=== PATIENT | female | born 1955 | race African-American/Black ===

== ENCOUNTER 2023-07-18 15:34 | Inpatient (IN) | payer OTHER ==
[~2023-07-18] VITALS: Ht 162.6 cm; Wt 46.7 kg
[2023-07-18 16:29] LABS: BASOPHILS % (AUTO) 0.2 % (0.0-2.0); EOSINOPHILS # (AUTO) 0.1 K/uL (0.0-0.7); HEMATOCRIT 32.6 % (31.2-41.9); LYMPHOCYTES # (AUTO) 1.1 K/uL (0.8-4.8); LYMPHOCYTES % (AUTO) 19.5 % (20.5-51.5); MEAN CORPUSCULAR HEMOGLOBIN 32.5 uug (24.7-32.8); MEAN CORPUSCULAR HGB CONC 34 g/dL (32.3-35.6); MEAN CORPUSCULAR VOLUME 96.2 fL (75.5-95.3); MONOCYTES # (AUTO) 0.3 K/uL (0.1-1.30); NEUTROPHILS # (AUTO) 4.1 K/uL (1.8-8.9); NEUTROPHILS % (AUTO) 74.3 % (38.5-71.5); PLATELET COUNT (AUTO) 267 K/uL (179-408); RED BLOOD CELL COUNT(AUTO) 3.38 MIL/uL (3.63-4.92); RED CELL DISTRIBUTION WIDTH 13.4 % (12.3-17.7); WHITE BLOOD COUNT (AUTO) 5.5 K/uL (3.8-11.8)
[2023-07-18 16:30] LABS: DIFFERENTIAL COMMENT 1
[2023-07-18 16:48] LABS: CALCIUM 8.8 mg/dL (8.5-10.1); CARBON DIOXIDE 27 mmol/L (21-32); CHLORIDE 107 mmol/L (98-107); CREATININE 0.9 mg/dL (0.6-1.3); GLUCOSE 99 mg/dL (74-106); POTASSIUM 3.7 mmol/L (3.5-5.1); SODIUM SERUM 142 mmol/L (136-145); UREA NITROGEN, BLOOD 18 mg/dL (7-18)
[2023-07-18] MEDS ORDERED: OXYC-121 PO (17:45)
[2023-07-18] MEDS ORDERED: BUPR300F3 BC (17:45)
[2023-07-18] MEDS ORDERED: ONDA4TAB11 SL (17:45)
[2023-07-18] MEDS ORDERED: MESA1.2T3 PO (17:45)
[2023-07-18] MEDS ORDERED: OMEP40CA21 PO (17:45)
[2023-07-18 22:45] VITALS: BP 119/60; TEMP 98.1; O2SAT 98
[2023-07-18] MEDS ORDERED: MAGNESIUM HYDROXIDE 30 ML LIQUID UDC PO PRN (23:30)
[2023-07-18] MEDS ORDERED: ONDANSETRON 4 MG/2 ML VIAL IV PRN (23:30)
[2023-07-18] MEDS ORDERED: REMEDY ESSENTIAL ZINC PASTE 113 GM TP PRN (23:30)
[2023-07-18] MEDS ORDERED: ACETAMINOPHEN 325 MG TABLET PO PRN (23:30)
[2023-07-18] MEDS ORDERED: HYDROCODONE/APAP 5-325MG TABLET PO PRN (23:30)
[2023-07-19] MEDS: HYDROCODONE/APAP 10-325 MG TABLET PO PRN ×3 (00:13→13:48)
[2023-07-19] MEDS: ZOLPIDEM 5 MG TABLET PO PRN ×3 (00:14→02:35)
[2023-07-19 04:54] VITALS: BP 116/51; TEMP 98; O2SAT 98
[2023-07-19 07:14] LABS: BASOPHILS % (AUTO) 0.6 % (0.0-2.0); EOSINOPHILS # (AUTO) 0.1 K/uL (0.0-0.7); EOSINOPHILS % (AUTO) 2.2 % (0.0-7.0); HEMATOCRIT 35.4 % (31.2-41.9); HEMOGLOBIN 12.2 g/dL (10.9-14.3); LYMPHOCYTES # (AUTO) 1.6 K/uL (0.8-4.8); LYMPHOCYTES % (AUTO) 43.7 % (20.5-51.5); MEAN CORPUSCULAR HGB CONC 34 g/dL (32.3-35.6); MEAN CORPUSCULAR VOLUME 96.2 fL (75.5-95.3); MONOCYTES # (AUTO) 0.2 K/uL (0.1-1.30); MONOCYTES % (AUTO) 5.6 % (0.0-11.0); NEUTROPHILS # (AUTO) 1.8 K/uL (1.8-8.9); NEUTROPHILS % (AUTO) 47.9 % (38.5-71.5); PLATELET COUNT (AUTO) 278 K/uL (179-408); RED BLOOD CELL COUNT(AUTO) 3.68 MIL/uL (3.63-4.92); RED CELL DISTRIBUTION WIDTH 13.3 % (12.3-17.7); WHITE BLOOD COUNT (AUTO) 3.7 K/uL (3.8-11.8)
[2023-07-19 07:15] LABS: DIFFERENTIAL COMMENT 1
[2023-07-19 07:53] LABS: CALCIUM 9.2 mg/dL (8.5-10.1); CREATININE 0.6 mg/dL (0.6-1.3); PHOSPHOROUS 3.6 mg/dL (2.5-4.9); POTASSIUM 3.8 mmol/L (3.5-5.1)
[2023-07-19 10:14] VITALS: BP 99/49; TEMP 98.3; O2SAT 99
[2023-07-19 12:44] VITALS: BP 114/49; TEMP 98.1; O2SAT 99
[2023-07-19] MEDS ORDERED: predniSONE 50 MG TABLET PO SCH (12:45)
[2023-07-19] MEDS ORDERED: predniSONE 50 MG TABLET PO ONE ×2 (13:30)
[2023-07-19] MEDS ORDERED: DOCU-141 PO (14:37)
[2023-07-19 15:22] VITALS: BP 131/47; TEMP 98; O2SAT 98
[2023-07-19 15:28] LABS: *BILIRUBIN,URIN NEGATIVE (NEGATIVE); *CLARITY,URINE CLEAR (CLEAR); *COLOR,URINE YELLOW (YELLOW); *KETONES,URINE NEGATIVE (NEGATIVE); *PROTEIN,URINE NEGATIVE (NEGATIVE); *UROBILINOGEN,URINE 0.2 E.U./dl (NORMAL); LEUKOCYTE ESTERASE ,URINE NEGATIVE (NEGATIVE); NITRITE, URINE NEGATIVE (NEGATIVE); PH,URINE 7.5 (5.0-8.0); UGLUCOSE NEGATIVE (NEGATIVE)
[2023-07-19 16:21] LABS: *BLOOD, URINE TRACE (NEGATIVE)
[2023-07-19 17:16] LABS: WBC,URINE 0-3 /HPF (0-3)
[2023-07-19 17:17] LABS: BACTERIA,URINE NONE SEEN /HPF (NONE SEEN); SQUAMOUS EPITHELIAL CELL,UR FEW /HPF (NONE SEEN)
[2023-07-19 20:00] VITALS: BP 114/51; TEMP 98.6; O2SAT 97
[2023-07-19] MEDS: OXYCODONE/APAP 5-325 MG TABLET PO PRN (22:51)
[2023-07-20] VITALS: BP 127/62; TEMP 98.4; O2SAT 98
[2023-07-20] MEDS: ZOLPIDEM 5 MG TABLET PO PRN (00:27)
[2023-07-20 04:00] VITALS: BP 104/54; TEMP 98; O2SAT 97
[2023-07-20 08:00] VITALS: BP 116/33; TEMP 98.1; O2SAT 97
[2023-07-20] MEDS: OXYCODONE/APAP 5-325 MG TABLET PO PRN (08:43)
[2023-07-20] MEDS ORDERED: predniSONE 20 MG TABLET PO ONE (09:00)
[2023-07-20] MEDS ORDERED: MECLIZINE HCL 12.5 MG TABLET PO PRN (09:15)
[2023-07-20] MEDS ORDERED: DIAZEPAM 10 MG/2 ML DISP.SYRIN IV ONE (11:30)
[2023-07-20 11:45] VITALS: BP 116/47; TEMP 98.2; O2SAT 98
[2023-07-20 16:00] VITALS: BP 139/89; TEMP 98.1; O2SAT 99
[2023-07-20] MEDS ORDERED: METH4TAB3 PO (17:01)
[2023-07-21] MEDS ORDERED: ENSURE ENLIVE (VAN) 240 ML LIQUID PO SCH (09:00)
[2023-07-21] MEDS ORDERED: predniSONE 10 MG TABLET PO ONE (09:00)
[2023-07-22] MEDS ORDERED: predniSONE 20 MG TABLET PO ONE (09:00)
[2023-07-23] MEDS ORDERED: predniSONE 10 MG TABLET PO ONE (09:00)
[2023-07-24] MEDS ORDERED: predniSONE 5 MG TABLET PO ONE (09:00)
== END 2023-07-20 18:40 | disposition home or self-care (01) | DRG 149 ==
LOC: ER 15:39 → TELE3 21:03
PROVIDERS: ADMIT Nurse Practitioner Acute Care; ATTEND Nurse Practitioner Acute Care
DX: H81.8X9 Other disorders of vestibular function, unspecified ear (principal); R26.0 Ataxic gait; H81.03 Meniere's disease, bilateral; H90.3 Sensorineural hearing loss, bilateral; G89.4 Chronic pain syndrome; F40.240 Claustrophobia; K27.9 Peptic ulcer, site unspecified, unspecified as acute or chronic, without hemorrhage or perforation; Z86.16 Personal history of COVID-19; D75.89 Other specified diseases of blood and blood-forming organs; I10 Essential (primary) hypertension
CPT/HCPCS: 36415; 70450; 70551; 71045; 83735; 84100; 84484; 85025; 93005; G0378; J3360; J7512

== ENCOUNTER 2023-10-18 07:55 | Inpatient (IN) | payer OTHER ==
[~2023-10-18] VITALS: Ht 152.4 cm; Wt 43.1 kg
[~2023-10-18 07:55] MED LIST: BUPR300F3 BC; DOCU-141 PO; MESA1.2T3 PO; METH4TAB3 PO; OMEP40CA21 PO; ONDA4TAB11 SL; OXYC-121 PO
[2023-10-18] MEDS: IV NORMAL SALINE 1000 ML BAG IV ONE (08:45)
[2023-10-18] MEDS ORDERED: diphenhydrAMINE 50 MG/1 ML VIAL ONE (08:50)
[2023-10-18] MEDS ORDERED: METOCLOPRAMIDE HCL 10 MG/2 ML VIAL ONE (08:51)
[2023-10-18] MEDS ORDERED: KETOROLAC TROMETHAMINE 15 MG INJ ONE (08:51)
[2023-10-18 08:52] LABS: BASOPHILS % (AUTO) 0.1 % (0.0-2.0); EOSINOPHILS % (AUTO) 0.2 % (0.0-7.0); HEMATOCRIT 37.7 % (31.2-41.9); LYMPHOCYTES # (AUTO) 0.6 K/uL (0.8-4.8); LYMPHOCYTES % (AUTO) 5.7 % (20.5-51.5); MEAN CORPUSCULAR HEMOGLOBIN 33.1 uug (24.7-32.8); MEAN CORPUSCULAR HGB CONC 35 g/dL (32.3-35.6); MEAN CORPUSCULAR VOLUME 95.8 fL (75.5-95.3); MONOCYTES # (AUTO) 0.2 K/uL (0.1-1.30); MONOCYTES % (AUTO) 2.4 % (0.0-11.0); NEUTROPHILS # (AUTO) 9.4 K/uL (1.8-8.9); NEUTROPHILS % (AUTO) 91.6 % (38.5-71.5); PLATELET COUNT (AUTO) 266 K/uL (179-408); RED BLOOD CELL COUNT(AUTO) 3.94 MIL/uL (3.63-4.92); RED CELL DISTRIBUTION WIDTH 13.7 % (12.3-17.7); WHITE BLOOD COUNT (AUTO) 10.3 K/uL (3.8-11.8)
[2023-10-18] MEDS: METOCLOPRAMIDE HCL 10 MG/2 ML VIAL IV ONE (08:55)
[2023-10-18 09:00] LABS: CALCIUM 9.1 mg/dL (8.5-10.1); CARBON DIOXIDE 21 mmol/L (21-32); CHLORIDE 105 mmol/L (98-107); CREATININE 0.7 mg/dL (0.6-1.3); GLUCOSE 142 mg/dL (74-106); POTASSIUM 4.4 mmol/L (3.5-5.1); SODIUM SERUM 137 mmol/L (136-145); UREA NITROGEN, BLOOD 15 mg/dL (7-18)
[2023-10-18] MEDS: diphenhydrAMINE 50 MG/1 ML VIAL IV ONE (09:00)
[2023-10-18] MEDS: KETOROLAC TROMETHAMINE 15 MG INJ IVP ONE (09:01)
[2023-10-18 09:04] LABS: DIFFERENTIAL COMMENT 1
[2023-10-18] MEDS ORDERED: DEXAMETHASONE SOD PHOSPHATE 10 MG INJ ONE (09:04)
[2023-10-18] MEDS: DEXAMETHASONE SOD PHOSPHATE 4 MG INJ IV ONE (09:06)
[2023-10-18 09:13] LABS: ALANINE AMINOTRANSFERASE 40 U/L (14-59); ALBUMIN 4.4 g/dL (3.4-5.0); ALKALINE PHOSPHATASE 77 U/L (50-136); ASPARTATE AMINOTRANSFERASE 46 U/L (15-37); BILIRUBIN,TOTAL 0.4 mg/dL (0.2-1.0); NT-PRO BNP 75 pg/mL (0-125); TOTAL PROTEIN, SERUM 7.8 g/dL (6.4-8.2)
[2023-10-18 09:18] LABS: BILIRUBIN,DIRECT < 0.1 mg/dL (0.0-0.2)
[2023-10-18] MEDS ORDERED: MORPHINE SULFATE 4 MG/1 ML DISP.SYRIN ONE (11:23)
[2023-10-18] MEDS: MORPHINE SULFATE 4 MG/1 ML DISP.SYRIN IV ONE (11:26)
[2023-10-18] MEDS ORDERED: ACETAMINOPHEN 325 MG TABLET PO PRN (13:15)
[2023-10-18] MEDS: IV 1/2NS 1000 ML 1,000 ML IV PRN (13:51)
[2023-10-18 16:00] VITALS: BP 103/52; TEMP 98.9; O2SAT 98
[2023-10-18] MEDS: MORPHINE SULFATE 2 MG/1 ML DISP.SYRIN IV PRN (16:44)
[2023-10-18 20:00] VITALS: BP 123/61; TEMP 98.2; O2SAT 100
[2023-10-18] MEDS: PANTOPRAZOLE SODIUM 40 MG VIAL IV SCH (20:39)
[2023-10-18] MEDS: ONDANSETRON 4 MG/2 ML VIAL IV PRN (20:39)
[2023-10-19 06:00] VITALS: BP 115/56; TEMP 98.4; O2SAT 98
[2023-10-19 06:31] LABS: HEMATOCRIT 31.3 % (31.2-41.9); HEMOGLOBIN 10.9 g/dL (10.9-14.3); LYMPHOCYTES % (AUTO) 13.1 % (20.5-51.5); MEAN CORPUSCULAR HGB CONC 35 g/dL (32.3-35.6); MEAN CORPUSCULAR VOLUME 95.1 fL (75.5-95.3); MONOCYTES # (AUTO) 0.3 K/uL (0.1-1.30); MONOCYTES % (AUTO) 4.2 % (0.0-11.0); NEUTROPHILS # (AUTO) 6.5 K/uL (1.8-8.9); NEUTROPHILS % (AUTO) 82.7 % (38.5-71.5); PLATELET COUNT (AUTO) 232 K/uL (179-408); RED BLOOD CELL COUNT(AUTO) 3.29 MIL/uL (3.63-4.92); RED CELL DISTRIBUTION WIDTH 13.5 % (12.3-17.7); WHITE BLOOD COUNT (AUTO) 7.8 K/uL (3.8-11.8)
[2023-10-19 06:44] LABS: DIFFERENTIAL COMMENT 1
[2023-10-19 06:53] LABS: CALCIUM 8.5 mg/dL (8.5-10.1); CREATININE 0.6 mg/dL (0.6-1.3); MAGNESIUM 1.5 mg/dL (1.8-2.4); PHOSPHOROUS 3.7 mg/dL (2.5-4.9); POTASSIUM 3.4 mmol/L (3.5-5.1)
[2023-10-19] MEDS: MAGNESIUM SULFATE/D5W 100 ML IV SCH (08:18)
[2023-10-19] MEDS: MORPHINE SULFATE 2 MG/1 ML DISP.SYRIN IV PRN (08:20)
[2023-10-19] MEDS: POTASSIUM CHLORIDE 50 ML IV SCH (10:39)
[2023-10-19 11:56] VITALS: BP 120/50; TEMP 98.3; O2SAT 99
[2023-10-19] MEDS: OXYCODONE/APAP 5-325 MG TABLET PO PRN (13:25)
[2023-10-19] MEDS: MAGNESIUM HYDROXIDE 30 ML LIQUID UDC PO PRN (15:41)
[2023-10-19 15:50] VITALS: BP 128/74; TEMP 98.4; O2SAT 99
[2023-10-19] MEDS ORDERED: MESALAMINE PO SCH (17:00)
[2023-10-19] MEDS: DOCUSATE SODIUM 100 MG CAPSULE PO SCH (17:52)
[2023-10-19 20:12] VITALS: BP 153/61; TEMP 98; O2SAT 100
[2023-10-19] MEDS: methylPREDNISolone SOD SUCC 40 MG/ML VIAL IV SCH (21:14)
[2023-10-20] MEDS: REMEDY ESSENTIAL ZINC PASTE 113 GM TP PRN (01:24)
[2023-10-20] MEDS: SIMETHICONE 80 MG TAB.CHEW PO PRN (02:40)
[2023-10-20 12:00] VITALS: BP 140/98; TEMP 99.2
[2023-10-20 13:01] LABS: *OCCULT BLOOD STOOL NEGATIVE (NEGATIVE)
[2023-10-20 16:00] VITALS: BP 127/55; TEMP 99
[2023-10-20] MEDS: CALCIUM CARBONATE 500 MG TAB.CHEW PO PRN (18:14)
[2023-10-20 20:18] VITALS: BP 125/53; TEMP 98.5; O2SAT 100
[2023-10-21 05:12] VITALS: BP 124/44; TEMP 98.4; O2SAT 99
[2023-10-21 09:21] VITALS: BP 145/52; TEMP 98; O2SAT 99
[2023-10-21 12:11] VITALS: BP 117/47; TEMP 97.6; O2SAT 98
[2023-10-21] MEDS: MESALAMINE 1.2 GM PO SCH (14:38)
[2023-10-21 16:05] VITALS: BP 126/46; TEMP 98.7; O2SAT 97
[2023-10-21] MEDS: PANTOPRAZOLE SODIUM 40 MG TABLET.DR PO SCH (17:50)
[2023-10-21 20:00] VITALS: TEMP 98.1
[2023-10-22 06:00] VITALS: TEMP 98.3
[2023-10-22 07:41] VITALS: BP 143/45; TEMP 98.4; O2SAT 99
[2023-10-22] MEDS: SUCRALFATE 1 G TABLET PO SCH (11:15)
[2023-10-22 11:25] LABS: BASOPHILS % (AUTO) 0.2 % (0.0-2.0); HEMATOCRIT 40.9 % (31.2-41.9); LYMPHOCYTES # (AUTO) 0.9 K/uL (0.8-4.8); LYMPHOCYTES % (AUTO) 9.1 % (20.5-51.5); MEAN CORPUSCULAR HEMOGLOBIN 32.6 uug (24.7-32.8); MEAN CORPUSCULAR HGB CONC 34 g/dL (32.3-35.6); MEAN CORPUSCULAR VOLUME 95.1 fL (75.5-95.3); MONOCYTES # (AUTO) 0.2 K/uL (0.1-1.30); MONOCYTES % (AUTO) 2.3 % (0.0-11.0); NEUTROPHILS # (AUTO) 8.3 K/uL (1.8-8.9); NEUTROPHILS % (AUTO) 88.4 % (38.5-71.5); PLATELET COUNT (AUTO) 308 K/uL (179-408); RED CELL DISTRIBUTION WIDTH 13.7 % (12.3-17.7); WHITE BLOOD COUNT (AUTO) 9.4 K/uL (3.8-11.8)
[2023-10-22 11:47] LABS: ALBUMIN 4.4 g/dL (3.4-5.0); BILIRUBIN,TOTAL 0.6 mg/dL (0.2-1.0); CALCIUM 9.3 mg/dL (8.5-10.1); CREATININE 0.8 mg/dL (0.6-1.3); POTASSIUM 3.1 mmol/L (3.5-5.1); TOTAL PROTEIN, SERUM 7.9 g/dL (6.4-8.2)
[2023-10-22 11:54] LABS: DIFFERENTIAL COMMENT 1
[2023-10-22 12:05] VITALS: BP 153/52; TEMP 98.2; O2SAT 98
[2023-10-22] MEDS: POTASSIUM CHLORIDE 20 MEQ TAB.PRT.SR PO ONE (13:10)
[2023-10-22 16:05] VITALS: BP 145/52; TEMP 98.6; O2SAT 97
[2023-10-22 20:00] VITALS: BP 160/55; TEMP 99.4; O2SAT 99
[2023-10-23 06:39] VITALS: BP 113/65; TEMP 97.9; O2SAT 99
[2023-10-23 07:52] VITALS: BP 141/49; TEMP 97.9; O2SAT 99
[2023-10-23 08:08] LABS: CARCINOEMBRYONIC AG (CEA) 1.7 ng/mL (0.0-4.7)
[2023-10-23 11:58] VITALS: BP 117/64; TEMP 99; O2SAT 99
[2023-10-23 16:47] VITALS: BP 137/58; TEMP 98.4; O2SAT 99
[2023-10-23 20:00] VITALS: BP 151/62; TEMP 98.9; O2SAT 100
[2023-10-24 06:00] VITALS: BP 146/76; TEMP 98.3; O2SAT 100
[2023-10-24] MEDS: ENSURE ENLIVE (VAN) 240 ML LIQUID PO SCH (08:34)
[2023-10-24 11:19] VITALS: BP 133/56; TEMP 98.3; O2SAT 99
[2023-10-24] MEDS: POTASSIUM CHLORIDE 20 MEQ TAB.PRT.SR PO ONE (12:27)
[2023-10-24] MEDS ORDERED: PANT40TA2 PO (13:35)
[2023-10-24] MEDS ORDERED: SUCR1ORA PO (13:35)
[2023-10-24] MEDS ORDERED: POLY17PO4 PO (13:35)
== END 2023-10-24 17:59 | disposition home or self-care (01) | DRG 392 ==
LOC: ER 07:55 → MEDSURG3 12:33
PROVIDERS: ADMIT Internal Medicine; ATTEND Internal Medicine
PROC: 05HC33Z Insertion of Infusion Device into Left Basilic Vein, Percutaneous Approach (ICD-10-PCS; principal; 2023-10-18)
DX: K29.80 Duodenitis without bleeding (principal); K51.90 Ulcerative colitis, unspecified, without complications; R64 Cachexia; Z68.1 Body mass index [BMI] 19.9 or less, adult; K80.20 Calculus of gallbladder without cholecystitis without obstruction; Z87.11 Personal history of peptic ulcer disease; Z87.19 Personal history of other diseases of the digestive system; H91.93 Unspecified hearing loss, bilateral; H91.13 Presbycusis, bilateral; Z91.148 Patient's other noncompliance with medication regimen for other reason; I10 Essential (primary) hypertension; K52.9 Noninfective gastroenteritis and colitis, unspecified
CPT/HCPCS: 36415; 82105; 82378; 83735; 84100; 84484; 85025; 86301; 93005; A4606; A4663; C9113; G0378; J1100; J1200; J1885; J2270; J2405; J2765; J2920; J3475; J3480; J7040

== ENCOUNTER 2023-12-05 15:17 | Inpatient (IN) | payer OTHER ==
[~2023-12-05] VITALS: Ht 152.4 cm; Wt 43.1 kg
[~2023-12-05 15:17] MED LIST changes: -METH4TAB3 PO; -OMEP40CA21 PO; +PANT40TA2 PO; +POLY17PO4 PO; +SUCR1ORA PO
[2023-12-05] MEDS ORDERED: ONDANSETRON 4 MG/2 ML VIAL ONE ×2 (15:38→17:29)
[2023-12-05] MEDS ORDERED: HYDROMORPHONE 1 MG/1 ML DISP.SYRIN ONE ×3 (16:08→18:15)
[2023-12-05] MEDS: HYDROMORPHONE 1 MG/1 ML DISP.SYRIN IV ONE ×2 (16:11→16:32)
[2023-12-05] MEDS: ONDANSETRON 4 MG/2 ML VIAL IV ONE (16:12)
[2023-12-05] MEDS: IV NORMAL SALINE 1000 ML BAG IV ONE (16:12)
[2023-12-05 17:06] LABS: BASOPHILS % (AUTO) 0.1 % (0.0-2.0); EOSINOPHILS % (AUTO) 0.4 % (0.0-7.0); HEMATOCRIT 40.7 % (31.2-41.9); HEMOGLOBIN 13.7 g/dL (10.9-14.3); LYMPHOCYTES # (AUTO) 0.6 K/uL (0.8-4.8); LYMPHOCYTES % (AUTO) 7.1 % (20.5-51.5); MEAN CORPUSCULAR HEMOGLOBIN 32.6 uug (24.7-32.8); MEAN CORPUSCULAR HGB CONC 34 g/dL (32.3-35.6); MEAN CORPUSCULAR VOLUME 96.9 fL (75.5-95.3); MONOCYTES # (AUTO) 0.3 K/uL (0.1-1.30); MONOCYTES % (AUTO) 4.2 % (0.0-11.0); NEUTROPHILS # (AUTO) 7.1 K/uL (1.8-8.9); NEUTROPHILS % (AUTO) 88.2 % (38.5-71.5); PLATELET COUNT (AUTO) 218 K/uL (179-408); RED CELL DISTRIBUTION WIDTH 12.9 % (12.3-17.7); WHITE BLOOD COUNT (AUTO) 8.1 K/uL (3.8-11.8)
[2023-12-05 17:08] LABS: DIFFERENTIAL COMMENT 1
[2023-12-05 17:12] LABS: CALCIUM 9.5 mg/dL (8.5-10.1); CARBON DIOXIDE 24 mmol/L (21-32); CHLORIDE 107 mmol/L (98-107); CREATININE 0.8 mg/dL (0.6-1.3); GLUCOSE 88 mg/dL (74-106); POTASSIUM 3.4 mmol/L (3.5-5.1); SODIUM SERUM 146 mmol/L (136-145); UREA NITROGEN, BLOOD 10 mg/dL (7-18)
[2023-12-05 17:20] LABS: ALANINE AMINOTRANSFERASE 80 U/L (14-59); ALBUMIN 4.8 g/dL (3.4-5.0); ALKALINE PHOSPHATASE 111 U/L (50-136); ASPARTATE AMINOTRANSFERASE 117 U/L (15-37); BILIRUBIN,DIRECT 0.3 mg/dL (0.0-0.2); BILIRUBIN,TOTAL 0.7 mg/dL (0.2-1.0); LIPASE 13 U/L (16-77); TOTAL PROTEIN, SERUM 7.9 g/dL (6.4-8.2)
[2023-12-05 17:24] LABS: LACTIC ACID 3.2 mmol/L (0.4-2.0)
[2023-12-05 17:24] LABS: *BILIRUBIN,URIN NEGATIVE (NEGATIVE); *CLARITY,URINE CLEAR (CLEAR); *COLOR,URINE YELLOW (YELLOW); *KETONES,URINE NEGATIVE (NEGATIVE); *PROTEIN,URINE NEGATIVE (NEGATIVE); *UROBILINOGEN,URINE 0.2 E.U./dl (NORMAL); LEUKOCYTE ESTERASE ,URINE NEGATIVE (NEGATIVE); NITRITE, URINE NEGATIVE (NEGATIVE); PH,URINE 6.5 (5.0-8.0); UGLUCOSE NEGATIVE (NEGATIVE)
[2023-12-05 17:25] LABS: *BLOOD, URINE TRACE (NEGATIVE)
[2023-12-05] MEDS ORDERED: PANT40TA49 PO (17:26)
[2023-12-05] MEDS ORDERED: PANTOPRAZOLE SODIUM 40 MG VIAL ONE (17:30)
[2023-12-05] MEDS ORDERED: MAGNESIUM HYDROXIDE 30 ML LIQUID UDC PO PRN (17:30)
[2023-12-05] MEDS ORDERED: ACETAMINOPHEN 325 MG TABLET PO PRN (17:30)
[2023-12-05] MEDS: PANTOPRAZOLE SODIUM 40 MG VIAL IV SCH ×2 (17:36→21:35)
[2023-12-05] MEDS: ONDANSETRON 4 MG/2 ML VIAL IV PRN (17:37)
[2023-12-05 17:41] LABS: BACTERIA,URINE NONE SEEN /HPF (NONE SEEN); SQUAMOUS EPITHELIAL CELL,UR FEW /HPF (NONE SEEN); WBC,URINE 0-3 /HPF (0-3)
[2023-12-05] MEDS ORDERED: diphenhydrAMINE 50 MG/1 ML VIAL ONE (18:16)
[2023-12-05] MEDS ORDERED: PROCHLORPERAZINE EDISYLATE 10 MG/2 ML VIAL ONE (18:16)
[2023-12-05] MEDS ORDERED: IV NORMAL SALINE 250 ML IV ONE (18:26)
[2023-12-05] MEDS ORDERED: SWABABLE VALVE TRANSFER SET EA MC ONE (18:26)
[2023-12-05] MEDS ORDERED: IOHEXOL 300MG/ML 100 ML INFUS..BTL ONE (18:26)
[2023-12-05] MEDS: HYDROMORPHONE 1 MG/1 ML DISP.SYRIN IV PRN (18:27)
[2023-12-05] MEDS: PROCHLORPERAZINE EDISYLATE 10 MG/2 ML VIAL IV ONE (18:32)
[2023-12-05] MEDS: diphenhydrAMINE 50 MG/1 ML VIAL IV ONE (18:32)
[2023-12-05 21:30] VITALS: BP 122/45; TEMP 99.2; O2SAT 95
[2023-12-05] MEDS: IV NS 1000 ML 1,000 ML IV PRN (21:36)
[2023-12-06 06:49] VITALS: BP 120/56; TEMP 98.9; O2SAT 100
[2023-12-06 07:05] LABS: BASOPHILS % (AUTO) 0.1 % (0.0-2.0); EOSINOPHILS % (AUTO) 0.1 % (0.0-7.0); HEMATOCRIT 31.7 % (31.2-41.9); HEMOGLOBIN 11.1 g/dL (10.9-14.3); LYMPHOCYTES # (AUTO) 1.3 K/uL (0.8-4.8); LYMPHOCYTES % (AUTO) 14.6 % (20.5-51.5); MEAN CORPUSCULAR HEMOGLOBIN 33.2 uug (24.7-32.8); MEAN CORPUSCULAR HGB CONC 35 g/dL (32.3-35.6); MEAN CORPUSCULAR VOLUME 94.8 fL (75.5-95.3); MONOCYTES # (AUTO) 0.3 K/uL (0.1-1.30); MONOCYTES % (AUTO) 3.6 % (0.0-11.0); NEUTROPHILS # (AUTO) 7.2 K/uL (1.8-8.9); NEUTROPHILS % (AUTO) 81.6 % (38.5-71.5); PLATELET COUNT (AUTO) 237 K/uL (179-408); RED BLOOD CELL COUNT(AUTO) 3.34 MIL/uL (3.63-4.92); RED CELL DISTRIBUTION WIDTH 12.5 % (12.3-17.7); WHITE BLOOD COUNT (AUTO) 8.8 K/uL (3.8-11.8)
[2023-12-06 07:15] LABS: CALCIUM 8.5 mg/dL (8.5-10.1); CREATININE 0.6 mg/dL (0.6-1.3); MAGNESIUM 1.6 mg/dL (1.8-2.4); PHOSPHOROUS 3.7 mg/dL (2.5-4.9); POTASSIUM 3.2 mmol/L (3.5-5.1)
[2023-12-06 07:21] LABS: DIFFERENTIAL COMMENT 1
[2023-12-06 08:28] VITALS: BP 114/35; TEMP 98.9; O2SAT 100
[2023-12-06] MEDS ORDERED: BUPR1PAT2 TP (10:48)
[2023-12-06] MEDS: POTASSIUM CHLORIDE 20 MEQ TAB.PRT.SR PO ONE (11:03)
[2023-12-06] MEDS: MAGNESIUM OXIDE 400 MG TABLET PO ONE (11:04)
[2023-12-06 11:32] VITALS: BP 105/42; TEMP 99; O2SAT 96
[2023-12-06] MEDS ORDERED: PIPERACILLIN SODIUM/TAZOBACTAM 3.375 G in IV DEXTROSE 5% 50 ML IV SCH (12:00)
[2023-12-06] MEDS: PIPERACILLIN SODIUM/TAZOBACTAM 3.375 G in IV DEXTROSE 5% 100 ML IV SCH (13:40)
[2023-12-06] MEDS: HYDROMORPHONE 1 MG/1 ML DISP.SYRIN IV PRN (14:05)
[2023-12-06] MEDS: POTASSIUM CHLORIDE 20 MEQ in IV D5/ 0.9% NACL 1,000 ML IV PRN (14:05)
[2023-12-06 15:13] VITALS: BP 116/48; TEMP 99.1; O2SAT 97
[2023-12-06 17:50] LABS: ALBUMIN 3.4 g/dL (3.4-5.0); BILIRUBIN,DIRECT 0.2 mg/dL (0.0-0.2); BILIRUBIN,TOTAL 0.9 mg/dL (0.2-1.0); TOTAL PROTEIN, SERUM 5.9 g/dL (6.4-8.2)
[2023-12-06] MEDS: ASPIRIN EC 81 MG TABLET.DR PO ONE (19:07)
[2023-12-06 22:32] VITALS: BP 114/43; TEMP 98.9; O2SAT 98
[2023-12-07 00:01] VITALS: BP 124/47; TEMP 98.2; O2SAT 97
[2023-12-07 04:17] VITALS: BP 116/51; TEMP 98.2; O2SAT 97
[2023-12-07 07:23] LABS: CALCIUM 9.2 mg/dL (8.5-10.1); CREATININE 0.7 mg/dL (0.6-1.3); MAGNESIUM 1.9 mg/dL (1.8-2.4); POTASSIUM 3.6 mmol/L (3.5-5.1)
[2023-12-07 07:47] VITALS: BP 116/44; TEMP 98.6; O2SAT 98
[2023-12-07 08:07] LABS: CARCINOEMBRYONIC AG (CEA) 1.3 ng/mL (0.0-4.7)
[2023-12-07] MEDS: PANTOPRAZOLE SODIUM 40 MG VIAL IV SCH (09:15)
[2023-12-07 12:00] VITALS: BP 116/72; TEMP 97; O2SAT 98
[2023-12-07 16:00] VITALS: BP 128/52; TEMP 97.3; O2SAT 97
[2023-12-07] MEDS ORDERED: PANT40VI IV (19:29)
[2023-12-07] MEDS ORDERED: PIPE3.379 IV (19:29)
[2023-12-07] MEDS ORDERED: HYDR1DIS2 IV (19:29)
[2023-12-07] MEDS ORDERED: ONDA4VIA23 IV (19:29)
[2023-12-07 20:09] VITALS: BP 138/56; TEMP 98.7; O2SAT 99
== END 2023-12-07 21:45 | disposition short-term general hospital (02) | DRG 871 ==
LOC: ER 15:17 → MEDSURG3 20:50 → TELE3 12-06 18:11
PROVIDERS: ADMIT Nurse Practitioner Acute Care; ATTEND Internal Medicine
DX: A41.9 Sepsis, unspecified organism (principal); I21.A1 Myocardial infarction type 2; K80.00 Calculus of gallbladder with acute cholecystitis without obstruction; E87.20 Acidosis, unspecified; E87.0 Hyperosmolality and hypernatremia; R18.8 Other ascites; Z68.1 Body mass index [BMI] 19.9 or less, adult; K51.90 Ulcerative colitis, unspecified, without complications; C24.1 Malignant neoplasm of ampulla of Vater; K92.2 Gastrointestinal hemorrhage, unspecified; R10.84 Generalized abdominal pain; G89.4 Chronic pain syndrome; Z87.11 Personal history of peptic ulcer disease; I10 Essential (primary) hypertension; E87.6 Hypokalemia; R74.01 Elevation of levels of liver transaminase levels
CPT/HCPCS: 36415; 71045; 74170; 82378; 83605; 83690; 83735; 84100; 84484; 85025; 85730; 86301; 93005; A4663; C9113; G0378; J0780; J1170; J1200; J2405; J2543; J3480; J7040; J7042; Q9967